=== PATIENT | male | born 1965 ===

== ENCOUNTER 2019-10-19 17:05 | Inpatient (IN) ==
[2019-10-19] MEDS ORDERED: DEXTROSE 50% 25 GM/50 ML VIAL IV PRN (20:40)
[2019-10-19] MEDS ORDERED: GLUCAGON 1 MG VIAL IM PRN (20:40)
[2019-10-19] MEDS ORDERED: ONDANSETRON 4 MG/2 ML VIAL IV PRN (20:46)
[2019-10-19] MEDS ORDERED: SODIUM CHLORIDE 0.9% 1,000 ML IV PRN (20:48)
[2019-10-19 21:53] LABS: Troponin I 0.552 NG/ML (0.00-0.045)
[2019-10-19] MEDS: PANTOPRAZOLE 40 MG VIAL IV SCH (22:00)
[2019-10-19] MEDS: TICAGRELOR 90 MG TABLET PO SCH (22:00)
[2019-10-19] MEDS: INSULIN REGULAR 100 UNIT/ML SUBCUT SCH (22:00)
[2019-10-19] MEDS: ACETAMINOPHEN 325 MG TABLET PO PRN (23:02)
[2019-10-19 23:39] LABS: Apearance,Urine CLEAR (Clear); Bilirubin,Urine Negative (Negative); Blood, Urine Negative (Negative); Glucose,Urine (UA) >=500 mg/dL (Negative); Hyaline Casts,Urine 1 /LPF (0-3); Ketones,Urine Negative (Negative); Mucus,Urine Occasional /LPF (Occasional); Nitrite,Urine Negative (Negative); Protein,Urine Negative; RBC,Urine 4 /HPF (0-4); Squamous Epithelial Cell,Urine Occasional /HPF (0-10); Urine Color Yellow (Yellow); Urine Specific Gravity 1.023 (1.001-1.035); Urine Urobilinogen < 2.0 EU/DL (0.2-1.0); WBC,Urine <1 /HPF (0-6)
[2019-10-20] MEDS ORDERED: diphenhydrAMINE 50 MG/1 ML VIAL IV ONE (00:43)
[2019-10-20] MEDS ORDERED: methylPREDNISolone SOD SUC 125 MG/2 ML VIAL IV ONE (02:30)
[2019-10-20 04:16] LABS: Troponin I 0.445 NG/ML (0.00-0.045)
[2019-10-20 08:04] LABS: Hemoglobin A1 (Alkaline) 97.9 % (96.5-98.5); Hemoglobin A2 (Alkaline) 2.1 % (1.5-3.5)
[2019-10-20 08:13] LABS: Basophils % 0.3 % (0.0-0.8); Eosinophils % 0.1 % (0.00-10.9); Hematocrit 31.3 VOL% (42.0-52.0); Hemoglobin 9.1 GM/DL (14.0-18.0); Immature Granulocytes % 0.6 %; Immature Granulocytes Absolute 0.07 #; Lymphocytes # 0.8 10*3/uL (1.4-4.0); Lymphocytes % 6.6 % (21.2-54.2); Mean Corpuscular HGB Conc 29.1 GM/DL (32-36); Mean Corpuscular Volume 69.2 FL (87-102); Mean Platelet Volume 10.3 FL (9.6-12.0); Monocytes % 0.5 % (1.7-12.7); Neutrophils % 91.9 % (38.7-73.9); Platelet Count 396 T/CUMM (130-400); Red Blood Count 4.52 MC/CUMM (3.8-5.5); Red Cell Distribution Width 20.5 % (9.3-17.3); White Blood Count 11.3 T/CUMM (4-12)
[2019-10-20 08:30] LABS: Albumin 3.5 G/DL (3.4-5.0); Bilirubin,Direct 0.3 MG/DL (0.0-0.20); Bilirubin,Indirect 0.8 MG/DL (0.0-1.0); Bilirubin,Total 1.1 MG/DL (0.2-1.0); Ferritin 4.6 ng/ml (26-388); Total Protein 7.9 G/DL (6.4-8.3)
[2019-10-20] MEDS ORDERED: LACTATED RINGERS 1,000 ML IV SCH (08:30)
[2019-10-20 08:35] LABS: Troponin I 0.303 NG/ML (0.00-0.045)
[2019-10-20 08:38] LABS: Osmolality,Calculated 281.2 MOS/KG (273-304); Risk Ratio 2.74; Thyroid Stimulating Hormone 0.978 uIU/ml (0.358-3.74); VLDL CHOLESTEROL 20.2 MG/DL
[2019-10-20 08:43] LABS: PT Patient Result 10.3 SECS (9.8-11.9)
[2019-10-20] MEDS ORDERED: ETOMIDATE 20 MG/10 ML VIAL IV ONE (09:00)
[2019-10-20] MEDS ORDERED: LIDOCAINE 2% 5 ML VIAL ONE (09:00)
[2019-10-20] MEDS ORDERED: propofoL 200 MG/20 ML VIAL IV ONE (09:00)
[2019-10-20 09:26] LABS: Folate > 24.0 NG/ML (5.4-24.0); Vitamin B12 471 PG/ML (211-911)
[2019-10-20] MEDS: PANTOPRAZOLE 40 MG VIAL IV SCH ×2 (09:53→22:08)
[2019-10-20] MEDS: INSULIN REGULAR 100 UNIT/ML SUBCUT SCH ×4 (09:55→22:07)
[2019-10-20] MEDS ORDERED: IRON SUCROSE 300 MG in SODIUM CHLORIDE 0.9% 100 ML IV ONE (10:30)
[2019-10-20] MEDS: TICAGRELOR 90 MG TABLET PO SCH (11:35)
[2019-10-20 12:37] LABS: Sedimentation Rate-Westergren 25 MM/HR (0-20)
[2019-10-20 15:09] LABS: Lymphocytes 7 % (20-55); Segmented Neutrophils 93 % (50-85); Total Cells Counted 100
[2019-10-20 15:10] LABS: Anisocytosis 2+; Hypochromasia 1+; Microcytosis 2+; Platelet Estimate Normal
[2019-10-20] MEDS: FUROSEMIDE 40 MG/4 ML VIAL IV SCH (15:24)
[2019-10-20] MEDS: ASPIRIN EC 81 MG TABLET PO SCH (15:24)
[2019-10-20] MEDS: METOPROLOL TARTRATE 25 MG TABLET PO SCH (16:46)
[2019-10-20] MEDS ORDERED: INSULIN GLARGINE 100 UNIT/ML SUBCUT SCH (21:00)
[2019-10-20] MEDS: ATORVASTATIN 40 MG TABLET PO SCH (21:54)
[2019-10-20] MEDS: ACETAMINOPHEN 325 MG TABLET PO PRN (22:06)
[2019-10-20] MEDS: BUDESONIDE/FORMOTEROL 160-4.5 INHALER 6 GM INH SCH (22:13)
[2019-10-21] MEDS: INSULIN REGULAR 100 UNIT/ML SUBCUT SCH ×7 (00:57→23:59)
[2019-10-21 06:13] LABS: Basophils % 0.2 % (0.0-0.8); Eosinophils % 0.1 % (0.00-10.9); Hematocrit 30.2 VOL% (42.0-52.0); Hemoglobin 8.8 GM/DL (14.0-18.0); Immature Granulocytes % 0.6 %; Immature Granulocytes Absolute 0.11 #; Lymphocytes # 2.4 10*3/uL (1.4-4.0); Lymphocytes % 13.3 % (21.2-54.2); Mean Corpuscular HGB Conc 29.1 GM/DL (32-36); Mean Corpuscular Volume 69.7 FL (87-102); Mean Platelet Volume 10.8 FL (9.6-12.0); Monocytes % 9.1 % (1.7-12.7); NRBC # 0.07 10*3/uL; Neutrophils % 76.7 % (38.7-73.9); Platelet Count 424 T/CUMM (130-400); Red Blood Count 4.33 MC/CUMM (3.8-5.5); Red Cell Distribution Width 20.7 % (9.3-17.3); White Blood Count 17.9 T/CUMM (4-12)
[2019-10-21 06:38] LABS: Calcium 9.4 MG/DL (8.5-10.1)
[2019-10-21] MEDS ORDERED: POTASSIUM CHLORIDE 20 MEQ TABLET PO ONE (08:58)
[2019-10-21] MEDS ORDERED: LEVOFLOXACIN INJ 750 MG in PREMIX 1 EACH IV SCH (09:00)
[2019-10-21] MEDS ORDERED: IRON SUCROSE 300 MG in SODIUM CHLORIDE 0.9% 100 ML IV ONE (09:00)
[2019-10-21] MEDS: BUDESONIDE/FORMOTEROL 160-4.5 INHALER 6 GM INH SCH ×2 (09:17→20:18)
[2019-10-21] MEDS: METOPROLOL TARTRATE 25 MG TABLET PO SCH ×2 (09:18→16:00)
[2019-10-21] MEDS: PANTOPRAZOLE 40 MG VIAL IV SCH (09:18)
[2019-10-21] MEDS: ASPIRIN EC 81 MG TABLET PO SCH (09:18)
[2019-10-21] MEDS: FUROSEMIDE 40 MG/4 ML VIAL IV SCH (09:20)
[2019-10-21] MEDS: CHOLECALCIFEROL 1,000 UNIT TABLET PO SCH (09:41)
[2019-10-21] MEDS: GABAPENTIN 300 MG CAPSULE PO SCH ×2 (14:53→20:18)
[2019-10-21] MEDS: ALBUTEROL 2 MG TABLET PO SCH ×2 (14:54→22:07)
[2019-10-21] MEDS ORDERED: POLYETHYLENE GLYCOL POWDER 255 GM BOTTLE PO ONE (18:00)
[2019-10-21] MEDS: PANTOPRAZOLE 40 MG TABLET PO SCH (18:03)
[2019-10-21] MEDS: ATORVASTATIN 40 MG TABLET PO SCH (20:18)
[2019-10-21] MEDS: INSULIN GLARGINE 100 UNIT/ML SUBCUT SCH (20:19)
[2019-10-22] MEDS: ACETAMINOPHEN 325 MG TABLET PO PRN (03:07)
[2019-10-22] MEDS: INSULIN REGULAR 100 UNIT/ML SUBCUT SCH ×5 (04:19→20:41)
[2019-10-22 05:31] LABS: Basophils # 0.1 10*3/uL (0.0-0.2); Basophils % 0.7 % (0.0-0.8); Eosinophils # 0.2 10*3/uL (0.0-0.87); Eosinophils % 1.4 % (0.00-10.9); Hemoglobin 8.4 GM/DL (14.0-18.0); Immature Granulocytes % 2.7 %; Immature Granulocytes Absolute 0.36 #; Lymphocytes # 3.3 10*3/uL (1.4-4.0); Lymphocytes % 24.4 % (21.2-54.2); Mean Corpuscular HGB Conc 28.3 GM/DL (32-36); Mean Corpuscular Volume 70.4 FL (87-102); Mean Platelet Volume 10.1 FL (9.6-12.0); Monocytes % 8.2 % (1.7-12.7); NRBC # 0.17 10*3/uL; Neutrophils % 62.6 % (38.7-73.9); Platelet Count 366 T/CUMM (130-400); Red Blood Count 4.22 MC/CUMM (3.8-5.5); White Blood Count 13.5 T/CUMM (4-12)
[2019-10-22] MEDS: ALBUTEROL 2 MG TABLET PO SCH ×3 (06:05→21:27)
[2019-10-22 06:11] LABS: Calcium 8.6 MG/DL (8.5-10.1); Osmolality,Calculated 282.8 MOS/KG (273-304)
[2019-10-22 06:25] LABS: Hematocrit 29.2 VOL% (42.0-52.0)
[2019-10-22 06:45] LABS: Hypochromasia 1+
[2019-10-22 06:46] LABS: Microcytosis 2+; Platelet Estimate Normal; Polychromasia Slight; Target Cells Slight
[2019-10-22] MEDS ORDERED: METOPROLOL TARTRATE 5 MG/5 ML VIAL IV ONE (07:32)
[2019-10-22] MEDS ORDERED: DILTIAZEM 25 MG/5 ML VIAL IV ONE (07:45)
[2019-10-22] MEDS ORDERED: dilTIAZem Drip 125 MG/125 ML PREMIX IV SCH (08:00)
[2019-10-22] MEDS ORDERED: MAGNESIUM SULF RIDER 2 GM in PREMIX 1 EACH IV ONE (08:34)
[2019-10-22] MEDS: PANTOPRAZOLE 40 MG TABLET PO SCH ×2 (09:18→18:26)
[2019-10-22] MEDS: BISACODYL 5 MG TABLET PO SCH ×3 (09:18→22:24)
[2019-10-22] MEDS: ASPIRIN EC 81 MG TABLET PO SCH (09:19)
[2019-10-22] MEDS: POTASSIUM CHLORIDE 20 MEQ TABLET PO SCH (09:19)
[2019-10-22] MEDS: BUDESONIDE/FORMOTEROL 160-4.5 INHALER 6 GM INH SCH (09:19)
[2019-10-22] MEDS: CHOLECALCIFEROL 1,000 UNIT TABLET PO SCH (09:19)
[2019-10-22] MEDS: METOPROLOL TARTRATE 50 MG TABLET PO SCH ×2 (09:19→20:41)
[2019-10-22] MEDS: FUROSEMIDE 40 MG/4 ML VIAL IV SCH (09:19)
[2019-10-22] MEDS: GABAPENTIN 300 MG CAPSULE PO SCH ×3 (09:19→20:41)
[2019-10-22] MEDS: METOPROLOL TARTRATE 25 MG TABLET PO SCH (09:28)
[2019-10-22] MEDS ORDERED: ALBUTEROL/IPRATROPIUM 3 ML NEB RESP TX PRN (11:20)
[2019-10-22] MEDS: POTASSIUM CHLORIDE RIDER 10 MEQ in PREMIX 1 EACH IV SCH ×4 (11:58→16:40)
[2019-10-22] MEDS ORDERED: LIDOCAINE 1% 20 ML VIAL ONE (12:38)
[2019-10-22] MEDS ORDERED: HEPARIN/NACL 0.9% 2 UNITS/ML 1,500 ML IV ONE (12:38)
[2019-10-22] MEDS ORDERED: MIDAZOLAM 2 MG/2 ML VIAL ONE (12:39)
[2019-10-22] MEDS ORDERED: fentaNYL 100 MCG/2 ML VIAL ONE (12:39)
[2019-10-22] MEDS ORDERED: SODIUM CHLORIDE 0.9% 1,000 ML IV SCH (14:00)
[2019-10-22] MEDS: IRON SUCROSE 300 MG in SODIUM CHLORIDE 0.9% 100 ML IV SCH (14:28)
[2019-10-22] MEDS ORDERED: POLYETHYLENE GLYCOL POWDER 255 GM BOTTLE PO ONE (18:00)
[2019-10-22] MEDS: BUDESONIDE 0.5 MG/2 ML NEB RESP TX SCH (20:06)
[2019-10-22] MEDS: IPRATROPIUM 500 MCG/2.5 ML NEB RESP TX SCH (20:06)
[2019-10-22] MEDS: LEVALBUTEROL 0.63 MG/3 ML NEB RESP TX SCH (20:06)
[2019-10-22] MEDS: INSULIN GLARGINE 100 UNIT/ML SUBCUT SCH (20:40)
[2019-10-22] MEDS: ATORVASTATIN 40 MG TABLET PO SCH (20:41)
[2019-10-23] MEDS: LEVALBUTEROL 0.63 MG/3 ML NEB RESP TX SCH ×3 (00:47→13:37)
[2019-10-23] MEDS: IPRATROPIUM 500 MCG/2.5 ML NEB RESP TX SCH ×3 (00:47→13:37)
[2019-10-23] MEDS: INSULIN REGULAR 100 UNIT/ML SUBCUT SCH ×6 (02:09→21:34)
[2019-10-23] MEDS: ALBUTEROL 2 MG TABLET PO SCH ×3 (05:26→21:35)
[2019-10-23 06:53] LABS: Calcium 8.9 MG/DL (8.5-10.1); Osmolality,Calculated 275.5 MOS/KG (273-304)
[2019-10-23] MEDS ORDERED: LACTATED RINGERS 1,000 ML IV SCH (07:00)
[2019-10-23 07:06] LABS: Basophils # 0.1 10*3/uL (0.0-0.2); Basophils % 0.5 % (0.0-0.8); Eosinophils # 0.4 10*3/uL (0.0-0.87); Hematocrit 30.7 VOL% (42.0-52.0); Hemoglobin 8.8 GM/DL (14.0-18.0); Immature Granulocytes Absolute 0.23 #; Lymphocytes # 2.6 10*3/uL (1.4-4.0); Mean Corpuscular HGB Conc 28.7 GM/DL (32-36); Mean Corpuscular Volume 71.1 FL (87-102); Mean Platelet Volume 10.4 FL (9.6-12.0); Monocytes % 7.7 % (1.7-12.7); NRBC # 0.09 10*3/uL; Neutrophils % 64.8 % (38.7-73.9); Platelet Count 329 T/CUMM (130-400); Red Blood Count 4.32 MC/CUMM (3.8-5.5); Red Cell Distribution Width 23.2 % (9.3-17.3); White Blood Count 11.7 T/CUMM (4-12)
[2019-10-23 07:08] LABS: Anisocytosis 2+; Platelet Estimate Normal; Polychromasia 1+
[2019-10-23 07:09] LABS: Basophilic Stippling Slight; Macrocytosis Slight
[2019-10-23] MEDS: BUDESONIDE 0.5 MG/2 ML NEB RESP TX SCH (08:14)
[2019-10-23] MEDS ORDERED: propofoL 200 MG/20 ML VIAL IV ONE (09:00)
[2019-10-23] MEDS ORDERED: LIDOCAINE 2% 5 ML VIAL ONE (09:00)
[2019-10-23] MEDS ORDERED: ETOMIDATE 20 MG/10 ML VIAL IV ONE (09:00)
[2019-10-23] MEDS: FUROSEMIDE 40 MG/4 ML VIAL IV SCH (10:02)
[2019-10-23] MEDS: CHOLECALCIFEROL 1,000 UNIT TABLET PO SCH (10:09)
[2019-10-23] MEDS: IRON SUCROSE 300 MG in SODIUM CHLORIDE 0.9% 100 ML IV SCH (10:09)
[2019-10-23] MEDS: METOPROLOL TARTRATE 50 MG TABLET PO SCH ×2 (10:10→21:35)
[2019-10-23] MEDS: ASPIRIN EC 81 MG TABLET PO SCH (10:10)
[2019-10-23] MEDS: POTASSIUM CHLORIDE 20 MEQ TABLET PO SCH (10:10)
[2019-10-23] MEDS: PANTOPRAZOLE 40 MG TABLET PO SCH ×2 (10:10→18:18)
[2019-10-23] MEDS: GABAPENTIN 300 MG CAPSULE PO SCH ×3 (10:10→21:35)
[2019-10-23] MEDS ORDERED: NITROGLYCERIN SL 0.4 MG TABLET SL PRN (13:12)
[2019-10-23] MEDS ORDERED: ALBUTEROL/IPRATROPIUM 3 ML NEB RESP TX PRN (16:04)
[2019-10-23] MEDS: FLUTICASONE 50 MCG NASAL SPRAY 16 GM BOTTLE BOTH NARES SCH (18:18)
[2019-10-23] MEDS ORDERED: OXYMETAZOLINE 0.05% NASAL SPRAY 15 ML BOTTLE BOTH NARES SCH (21:00)
[2019-10-23] MEDS: INSULIN GLARGINE 100 UNIT/ML SUBCUT SCH (21:34)
[2019-10-23] MEDS: ATORVASTATIN 40 MG TABLET PO SCH (21:35)
[2019-10-23] MEDS: BUDESONIDE/FORMOTEROL 160-4.5 INHALER 6 GM INH SCH (21:36)
[2019-10-24] MEDS: INSULIN REGULAR 100 UNIT/ML SUBCUT SCH ×3 (01:01→08:53)
[2019-10-24 06:27] LABS: Calcium 8.6 MG/DL (8.5-10.1); Osmolality,Calculated 284.8 MOS/KG (273-304)
[2019-10-24] MEDS: ALBUTEROL 2 MG TABLET PO SCH (06:29)
[2019-10-24] MEDS: PANTOPRAZOLE 40 MG TABLET PO SCH (06:35)
[2019-10-24 07:04] LABS: Basophils # 0.1 10*3/uL (0.0-0.2); Basophils % 0.6 % (0.0-0.8); Eosinophils # 0.3 10*3/uL (0.0-0.87); Eosinophils % 3.2 % (0.00-10.9); Hematocrit 30.6 VOL% (42.0-52.0); Hemoglobin 8.7 GM/DL (14.0-18.0); Immature Granulocytes % 1.6 %; Immature Granulocytes Absolute 0.17 #; Lymphocytes # 1.7 10*3/uL (1.4-4.0); Lymphocytes % 16.3 % (21.2-54.2); Mean Corpuscular HGB Conc 28.4 GM/DL (32-36); Mean Corpuscular Volume 72.7 FL (87-102); Mean Platelet Volume 10.8 FL (9.6-12.0); NRBC # 0.05 10*3/uL; Neutrophils % 70.3 % (38.7-73.9); Platelet Count 308 T/CUMM (130-400); Red Blood Count 4.21 MC/CUMM (3.8-5.5); Red Cell Distribution Width 25.1 % (9.3-17.3); White Blood Count 10.4 T/CUMM (4-12)
[2019-10-24 07:56] VITALS: BP 126/82
[2019-10-24] MEDS: METOPROLOL TARTRATE 50 MG TABLET PO SCH (08:40)
[2019-10-24] MEDS: POTASSIUM CHLORIDE 20 MEQ TABLET PO SCH (08:40)
[2019-10-24] MEDS: CHOLECALCIFEROL 1,000 UNIT TABLET PO SCH (08:40)
[2019-10-24] MEDS: BUDESONIDE/FORMOTEROL 160-4.5 INHALER 6 GM INH SCH (08:40)
[2019-10-24] MEDS: ASPIRIN EC 81 MG TABLET PO SCH (08:40)
[2019-10-24] MEDS: GABAPENTIN 300 MG CAPSULE PO SCH (08:40)
[2019-10-24] MEDS: FLUTICASONE 50 MCG NASAL SPRAY 16 GM BOTTLE BOTH NARES SCH (08:43)
[2019-10-24] MEDS: IRON SUCROSE 300 MG in SODIUM CHLORIDE 0.9% 100 ML IV SCH (11:32)
== END 2019-10-24 11:38 | disposition home or self-care (01) | DRG 378 ==
LOC: INTOOBSV 19:32 → SUATTDRO 19:32 → N.3E 19:32 → SUATTDRO 10-21 15:07 → N.TELEN 10-22 07:50
PROVIDERS: ADMIT Internal Medicine; ATTEND Family Medicine
PROC: CLCCHCL (ICD-10-PCS; 2019-10-22 13:45)